=== PATIENT | male | born 1965 | race Two or more races ===

== ENCOUNTER 2016-05-02 14:23 | Inpatient (IN) | payer BC ==
[~2016-05-02] VITALS: Ht 177.8 cm; Wt 95.9 kg
--- NOTE | 2016-05-02 15:13 | RAD ---
PA and lateral chest x-ray compared to similar study dated 02/24/2009 for cough and fever for 2 days. Findings: There is a right perihilar soft tissue density concerning for mass versus enlarged pulmonary artery. This is new since 2009. This could be better evaluated with CT scan of the chest. Small calcified granuloma is present in the right upper lung, there is a small band of atelectasis or scarring in the left midlung. Lungs are otherwise clear, with no focal infiltrate, pneumothorax, pleural effusion, or congestive heart failure. Heart size within normal limits. No significant osseous abnormalities are seen. Impression: 1. Right perihilar density suspicious for lung mass versus enlarged pulmonary artery. Further evaluation with CT scan of the chest is recommended.
[2016-05-02] MEDS ORDERED: IV NORMAL SALINE 1000ML BAG 1,000 ML IV ONE ×2 (15:45→18:00)
[2016-05-02 15:49] LABS: OBC FLU VALID
--- NOTE | 2016-05-02 16:05 | ED.ADGEN ---
Past Medical History Past Medical History: Hypertension Past Surgical History: Other Additional Past Surgical Histo: hernia, skin graft, Alcohol Use: Occasionally Drug Use: None Adult General Chief Complaint Chief Complaint: FLU SYMPTOM HPI HPI Patient is a 50 year old man, with no significant past history, who presents to the emergency department with complaint of cough, subjective fevers and chills, nausea, vomiting, diarrhea generalized weakness and malaise over the past several days. Patient states he has had sick contacts among family members. He denies any focal weakness, numbness or tingling, states that he has body aches but no chest pain, denies any blood in his emesis or stool. Has had multiple episodes of vomiting and diarrhea over the past several days. Cough is productive of white sputum. Has not taken any medications prior to coming to the ED. Denies any recent travel or surgery, history of DVT or PE. Review of Systems Review of Systems Constitutional: Denies fever or chills. [] Eyes: Denies change in visual acuity. [] HENT: Nasal congestion and sore throat. Respiratory: Cough productive of white sputum, no shortness of breath. Cardiovascular: Denies chest pain or edema. [] GI: Mild cramping abdominal pain, nausea, vomiting, diarrhea. No bloody stools or bloody emesis. [] : Denies dysuria. [] Musculoskeletal: Denies back pain or joint pain. [] Integument: Denies rash. [] Neurologic: Denies headache, focal weakness or sensory changes. [] Endocrine: Denies polyuria or polydipsia. [] Lymphatic: Denies swollen glands. [] Psychiatric: Denies depression or anxiety. [] Current Medications Current Medications Current Medications Medications (Trade) Dose Ordered Sig/Anu Start Time Stop Time Status Last Admin Dose Admin Acetaminophen (Tylenol) 1,000 mg 1X ONCE 05/02/16 16:30 05/02/16 16:31 DC 05/02/16 16:34 1,000 MG Benzonatate (Tessalon Perle) 100 mg 1X ONCE 05/02/16 16:30 05/02/16 16:31 DC 05/02/16 16:34 100 MG Iohexol (Omnipaque 300 Mg/ml) 75 ml STK-MED ONCE 05/02/16 16:32 05/02/16 16:33 DC Losartan Potassium (Cozaar) 50 mg 1X ONCE 05/02/16 17:45 05/02/16 17:48 DC 05/02/16 17:58 50 MG Metoprolol Succinate 25 mg 25 mg 1X ONCE 05/02/16 17:45 05/02/16 17:48 DC 05/02/16 17:58 25 MG Sodium Chloride (Iv Sodium Chloride 0.9% 1000ml Bag) 1,000 ml @ 1,000 mls/hr 1X ONCE 05/02/16 18:00 05/02/16 18:59 DC 05/02/16 18:09 1,000 MLS/HR Allergies Allergies Allergies Coded Allergies Type Severity Reaction Last Updated Verified No Known Drug Allergies 05/02/16 No Physical Exam Physical Exam Constitutional: Well developed, well nourished, no acute distress, slightly diaphoretic, ill in appearance. [] HENT: Normocephalic, atraumatic, bilateral external ears normal, oropharynx moist, no oral exudates, clear rhinorrhea noted bilaterally mild turbinate swelling, oropharynx mildly injected, no exudates identified. [] Eyes: PERRLA, EOMI, conjunctiva normal, no discharge. [] Neck: Normal range of motion, no tenderness, supple, no stridor. [] Cardiovascular:Heart rate regular rhythm, no murmur, S1, S2, no rubs or gallops. Lungs & Thorax: Bilateral breath sounds clear to auscultation, no wheezing, rhonchi, rales. No chest or crepitus or tenderness. [] Abdomen: Bowel sounds normal, soft, no tenderness, no masses, no pulsatile masses. [] Skin: Warm, dry, no erythema, no rash. [] Back: No tenderness, no CVA tenderness. [] Extremities: No tenderness, no cyanosis, no clubbing, ROM intact, no edema. [] Neurologic: Alert and oriented X 3, normal motor function, normal sensory function, no focal deficits noted. [] Psychologic: Affect normal, judgement normal, mood normal. [] Current Patient Data Vital Signs Vital Signs Date Time Temp Pulse Resp B/P Pulse Ox O2 Delivery O2 Flow Rate FiO2 05/02/16 17:58 79 151/101 05/02/16 17:15 14 97 Room Air 05/02/16 16:35 98.8 98.8 Lab Values Laboratory Tests Test 05/02/16 14:51 05/02/16 16:50 Influenza Type A Antigen Positive (NEGATIVE) Influenza Type B Antigen Negative (NEGATIVE) White Blood Count 8.0x10^3/uL (4.0-11.0) Red Blood Count 6.01x10^6/uL (4.30-5.70) H Hemoglobin 18.5g/dL (13.0-17.5) H Hematocrit 56.1% (39.0-53.0) H Mean Corpuscular Volume 93fL (79-100) Mean Corpuscular Hemoglobin 31pg (25-35) Mean Corpuscular Hemoglobin Concent 33g/dL (31-37) Red Cell Distribution Width 14.3% (11.5-14.5) Platelet Count 122x10^3/uL (140-400) L Neutrophils (%) (Auto) 60% (31-73) Lymphocytes (%) (Auto) 21% (24-48) L Monocytes (%) (Auto) 19% (0-9) H Eosinophils (%) (Auto) 0% (0-3) Basophils (%) (Auto) 0% (0-3) Neutrophils # (Auto) 4.8x10^3uL (1.8-7.7) Lymphocytes # (Auto) 1.6x10^3/uL (1.0-4.8) Monocytes # (Auto) 1.6x10^3/uL (0.0-1.1) H Eosinophils # (Auto) 0.0x10^3/uL (0.0-0.7) Basophils # (Auto) 0.0x10^3/uL (0.0-0.2) Sodium Level 137mmol/L (136-145) Potassium Level 4.4mmol/L (3.5-5.1) Chloride Level 101mmol/L (98-107) Carbon Dioxide Level 23mmol/L (21-32) Anion Gap 13 (6-14) Blood Urea Nitrogen 25mg/dL (8-26) Creatinine 1.5mg/dL (0.7-1.3) H Estimated GFR (Cockcroft-Gault) 49.3 BUN/Creatinine Ratio 17 (6-20) Glucose Level 80mg/dL (70-99) Lactic Acid Level 3.3mmol/L (0.4-2.0) H Calcium Level 8.8mg/dL (8.5-10.1) Total Bilirubin 0.5mg/dL (0.2-1.0) Aspartate Amino Transferase (AST) 43U/L (15-37) H Alanine Aminotransferase (ALT) 31U/L (16-63) Alkaline Phosphatase 82U/L (46-116) Troponin I Quantitative 0.070ng/mL (0.000-0.055) BY-Qnf-U-Type Natriuretic Peptide 1419pg/mL (0-124) H Total Protein 8.3g/dL (6.4-8.2) H Albumin 3.5g/dL (3.4-5.0) Albumin/Globulin Ratio 0.7 (1.0-1.7) L Lipase 172U/L (73-393) Laboratory Tests 05/02/16 16:50 Laboratory Tests 05/02/16 16:50 EKG EKG EC: Sinus rhythm, heart rate 77 bpm, left axis deviation with left anterior fascicular block noted, possible left ventricle hypertrophy with repolarization, elevation noted in aVR, with depressions noted in the inferior and lateral leads, concerning for ischemia. QTC of 434, NJ of 148, QRS of 102, abnormal ECG, does not meet STEMI criteria. Reviewed with Dr. Burgess of cardiology. [] Radiology/Procedures Radiology/Procedures [] [facility] [address] [place] [address] IMAGING REPORT Signed PATIENT: YOSELIN DAWKINS ACCOUNT: [id number] : 1965 LOCATION: ER AGE: 50 SEX: M EXAM STATUS: REG ER ORD. PHYSICIAN: ROSANA AUGUSTIN APRN REASON: cough PROCEDURE: CHEST PA & LATERAL PA and lateral chest x-ray compared to similar study dated 02/24/2009 for cough and fever for 2 days. Findings: There is a right perihilar soft tissue density concerning for mass versus enlarged pulmonary artery. This is new since 2009. This could be better evaluated with CT scan of the chest. Small calcified granuloma is present in the right upper lung, there is a small band of atelectasis or scarring in the left midlung. Lungs are otherwise clear, with no focal infiltrate, pneumothorax, pleural effusion, or congestive heart failure. Heart size within normal limits. No significant osseous abnormalities are seen. Impression: 1. Right perihilar density suspicious for lung mass versus enlarged pulmonary artery. Further evaluation with CT scan of the chest is recommended. DICTATED and SIGNED BY: WINTER FRIEND MD DATE: 05/02/16 4185 CC: BLANE RALPH; ROSANA AUGUSTIN SPECIAL EVENTS COORDINATOR; NON,STAFF ~ Course & Med Decision Making Course & Med Decision Making Pertinent Labs and Imaging studies reviewed. (See chart for details) Patient initially seen on the [facility] side by nurse practitioner Rosana Augustin, complaining of flu symptoms. Chest x-ray obtained, concern for possible mass versus prominence of the pulmonary artery on the right chest. I did assume care of the patient at that point, and evaluated the patient. He is agreeable with plan to receiving imaging of his chest lung laboratory studies including influenza swab to further elucidate his symptoms. Receiving IV fluids, acetaminophen, Tessalon Perle in the ED. Patient's swab was positive for influenza type A. Patient noted to be hypertensive, 160s over low 100s diastolic , heart rate in the 70s, patient denies any chest pain aside from coughing. Patient had not taken his home medications today, we did contact the [facility] pharmacy, patient takes low sore and 50 mg once daily, and metoprolol extended release 25 mg once daily, both medications were given to the patient in the emergency department. ECG was obtained that revealed evidence of ST depressions , with elevation in aVR, morphology concerning for ischemia. Patient with a troponin that was slightly positive at 0.070, patient noted to have significant dehydration, with a lactic of 3.3, creatinine of 1.5. Received IV fluids, multiple attempts for IV access and blood draws did delay in obtaining labs. Findings as above were discussed with Dr. Burgess of cardiology, at this time we are tending to obtain records from with the patient has previously been seen, and had an echo performed in February of this year, we will administer a dose of Lovenox in the emergency department, will follow serial enzymes and repeat EKG. Findings as above discussed with patient, he is agreeable with plan for admission, cardiac evaluation, treatment as above, continued hydration. Tamiflu administered. Findings as above discussed with Dr. Natarajan of internal medicine, patient accepted his service as a full admission to the cardiac telemetry floor with cardiac consultation as stated, no indication for antibiotics at this time, will continue to treat with supportive measures, and follow labs as above. Bridge orders entered per discussion. Dragon Disclaimer Dragon Disclaimer This electronic medical record was generated, in whole or in part, using a voice recognition dictation system. Departure Impression: Primary Impression: Influenza A Additional Impressions: Elevated troponin Abnormal ECG Dehydration Disposition: ADMITTED INPATIENT Admitting Physician: Kerrie Natarajan Condition: IMPROVED Problem Qualifiers ABIGAIL DIEGO DO May 02, 2016 16:05
--- NOTE | 2016-05-02 16:09 | PHYS DOC ---
Past Medical History Past Medical History: Hypertension Past Surgical History: Other Additional Past Surgical Histo: hernia, skin graft, Alcohol Use: Occasionally Drug Use: None Adult General Chief Complaint Chief Complaint: FLU SYMPTOM HPI HPI Patient is a 50 year old male who presents with a productive cough, body aches , chills, subjective fever, generalize weakness and diarrhea that began 2 days ago. Patient states he has history of smoking. He states he stopped a couple years ago. Patient denies any chest pain or shortness of breath. Patient denies any vomiting or melena. Denies any abdominal pain. History of hypertension and smoking. Review of Systems Review of Systems Constitutional: Generalized weakness, body aches fever Eyes: Denies change in visual acuity, redness, or eye pain [] HENT: Denies nasal congestion or sore throat [] Respiratory: cough Cardiovascular: No additional information not addressed in HPI [] GI: Denies abdominal pain, nausea, vomiting, bloody stools or diarrhea [] : Denies dysuria or hematuria [] Musculoskeletal: Denies back pain or joint pain [] Integument: Denies rash or skin lesions [] Neurologic: Denies headache, focal weakness or sensory changes [] Endocrine: Denies polyuria or polydipsia [] Current Medications Current Medications Current Medications Medications (Trade) Dose Ordered Sig/Anu Start Time Stop Time Status Last Admin Dose Admin Acetaminophen (Tylenol) 1,000 mg 1X ONCE 05/02/16 16:30 05/02/16 16:31 DC 05/02/16 16:34 1,000 MG Benzonatate (Tessalon Perle) 100 mg 1X ONCE 05/02/16 16:30 05/02/16 16:31 DC 05/02/16 16:34 100 MG Iohexol (Omnipaque 300 Mg/ml) 75 ml STK-MED ONCE 05/02/16 16:32 05/02/16 16:33 DC Sodium Chloride (Iv Sodium Chloride 0.9% 1000ml Bag) 1,000 ml @ 1,000 mls/hr 1X ONCE 05/02/16 15:45 05/02/16 16:44 DC 05/02/16 16:15 1,000 MLS/HR Allergies Allergies Allergies Coded Allergies Type Severity Reaction Last Updated Verified No Known Drug Allergies 05/02/16 No Physical Exam Physical Exam Constitutional: Well developed, well nourished, no acute distress, non-toxic appearance. [] HENT: Normocephalic, atraumatic, bilateral external ears normal, oropharynx moist, no oral exudates, nose normal. [] Eyes: PERRLA, EOMI, conjunctiva normal, no discharge. [] Neck: Normal range of motion, no tenderness, supple, no stridor. [] Cardiovascular:Heart rate regular rhythm, no murmur [] Lungs & Thorax: Bilateral breath sounds clear to auscultation [] Abdomen: Rounded abdomen. Bowel sounds normal, soft, no tenderness, no masses, no pulsatile masses. [] Skin: Warm, dry, no erythema, no rash. [] Back: No tenderness, no CVA tenderness. [] Extremities: No tenderness, no cyanosis, no clubbing, ROM intact, no edema. [] Neurologic: Alert and oriented X 3, normal motor function, normal sensory function, no focal deficits noted. [] Psychologic: Affect normal, judgement normal, mood normal. [] Current Patient Data Vital Signs Vital Signs Date Time Temp Pulse Resp B/P Pulse Ox O2 Delivery O2 Flow Rate FiO2 05/02/16 16:35 98.8 66 18 146/103 99 Room Air 98.8 Lab Values Laboratory Tests Test 05/02/16 14:51 05/02/16 16:50 Influenza Type A Antigen Positive (NEGATIVE) Influenza Type B Antigen Negative (NEGATIVE) White Blood Count 8.0x10^3/uL (4.0-11.0) Red Blood Count 6.01x10^6/uL (4.30-5.70) H Hemoglobin 18.5g/dL (13.0-17.5) H Hematocrit 56.1% (39.0-53.0) H Mean Corpuscular Volume 93fL (79-100) Mean Corpuscular Hemoglobin 31pg (25-35) Mean Corpuscular Hemoglobin Concent 33g/dL (31-37) Red Cell Distribution Width 14.3% (11.5-14.5) Platelet Count 122x10^3/uL (140-400) L Neutrophils (%) (Auto) 60% (31-73) Lymphocytes (%) (Auto) 21% (24-48) L Monocytes (%) (Auto) 19% (0-9) H Eosinophils (%) (Auto) 0% (0-3) Basophils (%) (Auto) 0% (0-3) Neutrophils # (Auto) 4.8x10^3uL (1.8-7.7) Lymphocytes # (Auto) 1.6x10^3/uL (1.0-4.8) Monocytes # (Auto) 1.6x10^3/uL (0.0-1.1) H Eosinophils # (Auto) 0.0x10^3/uL (0.0-0.7) Basophils # (Auto) 0.0x10^3/uL (0.0-0.2) Laboratory Tests 05/02/16 16:50 EKG EKG [] Radiology/Procedures Radiology/Procedures []PROCEDURE: CHEST PA & LATERAL PA and lateral chest x-ray compared to similar study dated 02/24/2009 for cough and fever for 2 days. Findings: There is a right perihilar soft tissue density concerning for mass versus enlarged pulmonary artery. This is new since 2009. This could be better evaluated with CT scan of the chest. Small calcified granuloma is present in the right upper lung, there is a small band of atelectasis or scarring in the left midlung. Lungs are otherwise clear, with no focal infiltrate, pneumothorax, pleural effusion, or congestive heart failure. Heart size within normal limits. No significant osseous abnormalities are seen. Impression: 1. Right perihilar density suspicious for lung mass versus enlarged pulmonary artery. Further evaluation with CT scan of the chest is recommended. DICTATED and SIGNED BY: WINTER FRIEND MD DATE: 05/02/16 3021 CC: BLANE RALPH; ROSANA AUGUSTIN SURGICAL AIDES TEACHER; JOSS,STAFF ~ Course & Med Decision Making Course & Med Decision Making Pertinent Labs and Imaging studies reviewed. (See chart for details) Patient is in the ED with symptoms of influenza including body aches chills cough and diarrhea. Chest x-ray interpreted by radiologist was noted for right perihilar density suspicious for lung mass versus enlarged pulmonary artery. Further evaluation and CT scan was recommended. Consulted with Dr. Diego who took over patient's care. I did assume care of this patient as described, at that point this note was not available for additional dictation, therefore I did begin my own note. Please refer to my provider note for further care, disposition and billing purposes. Dragon Disclaimer Dragon Disclaimer This electronic medical record was generated, in whole or in part, using a voice recognition dictation system. Departure Departure Impression: Primary Impression: Influenza A Referrals: BLANE RALPH (PCP) ROSANA AUGUSTIN APRN May 02, 2016 16:09 ABIGAIL DIEGO DO May 02, 2016 17:17
[2016-05-02] MEDS ORDERED: ACETAMINOPHEN 500 MG TABLET PO ONE (16:30)
[2016-05-02] MEDS ORDERED: BENZONATATE 100 MG CAPSULE. PO ONE (16:30)
[2016-05-02] MEDS ORDERED: IOHEXOL 300 MG/ML 75 ML VIAL IV ONE (16:30)
[2016-05-02] MEDS ORDERED: IOHEXOL 300 MG/ML 75 ML VIAL ONE (16:32)
[2016-05-02 17:02] LABS: BASO % 0 % (0-3); EOS % 0 % (0-3); HEMATOCRIT 56.1 % (39.0-53.0); HEMOGLOBIN 18.5 g/dL (13.0-17.5); LYMPH # 1.6 x10^3/uL (1.0-4.8); LYMPH % 21 % (24-48); MEAN CORPUSCULAR HEMOGLOBIN 31 pg (25-35); MEAN CORPUSCULAR HGB CONC 33 g/dL (31-37); MEAN CORPUSCULAR VOLUME 93 fL (79-100); MONO % 19 % (0-9); NEUT % 60 % (31-73); PLATELET COUNT 122 x10^3/uL (140-400); RED BLOOD COUNT 6.01 x10^6/uL (4.30-5.70); RED CELL DISTRIBUTION WIDTH 14.3 % (11.5-14.5)
[2016-05-02 17:16] LABS: CALCIUM 8.8 mg/dL (8.5-10.1); CREATININE 1.5 mg/dL (0.7-1.3); GFR 49.3; POTASSIUM 4.4 mmol/L (3.5-5.1)
[2016-05-02 17:30] LABS: ALBUMIN 3.5 g/dL (3.4-5.0); ALBUMIN/GLOBULIN RATIO 0.7 (1.0-1.7); TOTAL BILIRUBIN 0.5 mg/dL (0.2-1.0); TOTAL PROTEIN 8.3 g/dL (6.4-8.2)
--- NOTE | 2016-05-02 17:40 | RAD ---
PROCEDURE CT chest with contrast HISTORY Cough, abnormal chest radiograph. Weakness. TECHNIQUE Axial images and coronal and sagittal re-formatted images are provided. 75 milliliters of intravenous Omnipaque 300 was administered without complication. One or more of the following individualized dose reduction techniques were utilized for this exam: 1. Automated exposure control. 2. Adjustment of the mA and/or kV according to patient's size. 3. Use of iterative reconstruction technique. COMPARISON Chest radiograph from earlier today. FINDINGS There is dilated pulmonary outflow tract with main pulmonary artery measuring 4.5 centimeters in diameter and right main pulmonary artery 3.6 centimeters in diameter. Thoracic aorta is normal caliber. Heart is not enlarged. Minimal pericardial effusion is noted. There is no hilar or mediastinal adenopathy. Mildly prominent precarinal lymph node measures 10 millimeter short axis. Central airways are patent. There is no pleural effusion. There is no parenchymal mass. There is mild fatty infiltration of the liver. There are degenerative changes in the spine. IMPRESSION - Enlarged pulmonary outflow tract may be secondary to pulmonary arterial hypertension. This corresponds to the area of concern on chest radiograph. - Minimal ground-glass opacity in the right lower lobe may be infectious or inflammatory, 3 month follow up would be suggested. Electronically signed by: Chad Gordon MD (May 02, 2016 17:38:54)
[2016-05-02] MEDS ORDERED: METOPROLOL SUCC 24HR ER 25 MG TAB.ER.24H. PO ONE (17:45)
[2016-05-02] MEDS ORDERED: LOSARTAN POTASSIUM 50 MG TABLET. PO ONE (17:45)
[2016-05-02] MEDS ORDERED: ANTI-COAG MONITOR BY PHARMACY. MC PRN (18:45)
[2016-05-02] MEDS ORDERED: OSELTAMIVIR 75 MG CAPSULE PO ONE (19:00)
[2016-05-02] MEDS ORDERED: LABETALOL 20 MG/4 ML DISP.SYRIN. IVP PRN (19:15)
[2016-05-02] MEDS: ENOXAPARIN ** NOTE DOSE ** SYRINGE SQ SCH (19:25)
[2016-05-02] MEDS ORDERED: ONDANSETRON PF 4 MG/2 ML VIAL. IV PRN (19:45)
[2016-05-02] MEDS ORDERED: NITROGLYCERIN SUBLINGUAL 0.4 MG BOTTLE OF 25. SL PRN (19:45)
[2016-05-02] MEDS ORDERED: ACETAMINOPHEN 325 MG TABLET. PO PRN (19:45)
[2016-05-02 20:03] VITALS: BP 146/98
[2016-05-02] MEDS ORDERED: METO25TA9 PO (20:59)
[2016-05-02] MEDS ORDERED: ASPI-482 PO (20:59)
[2016-05-02] MEDS ORDERED: LOSA50TA6 PO (20:59)
[2016-05-02] MEDS: IV NORMAL SALINE 1000ML BAG 1,000 ML IV SCH (21:17)
--- NOTE | 2016-05-02 22:06 | PDOC1 ---
History and Physical Date of Admission Date of Admission DATE: 05/02/16 TIME: 22:05 Identification/Chief Complaint Chief Complaint cough, chest pain Source Source: Chart review, Patient History of Present Illness History of Present Illness Mr. Goldberg, is a 50 year old man, admit from emergency department with complaint of cough, subjective fevers and chills, nausea, vomiting, diarrhea and generalized weakness and malaise. INFLUENZA postive, tamiflu started he elicited + chest pain in ER ROS, he tells me pain is only with coughing and consistent over the past several days. he was asleep when I entered and has no current pain cough is productive of white sputum, Past Medical History Cardiovascular: HTN Pulmonary: Other (1 PULM HTN) Heme/Onc: No pertinent hx Hepatobiliary: No pertinent hx Psych: No pertinent hx Past Surgical History Past Surgical History: No pertinent history Social History Smoke: <1 pack per day ALCOHOL: rare Drugs: None Current Problem List Problem List Problems Medical Problems: (1) Abnormal ECG Status: Acute (2) Dehydration Status: Acute (3) Elevated troponin Status: Acute (4) Influenza A Status: Acute Problems: Current Medications Current Medications Current Medications Sodium Chloride (Iv Sodium Chloride 0.9% 1000ml Bag) 1,000 ml @ 1,000 mls/hr 1X ONCE IV Last administered on 05/02/16 16:15; Start 05/02/16 at 15:45; Stop 05/02/16 at 16:44; Status DC Acetaminophen (Tylenol) 1,000 mg 1X ONCE PO Last administered on 05/02/16 16: 34; Start 05/02/16 at 16:30; Stop 05/02/16 at 16:31; Status DC Benzonatate (Tessalon Perle) 100 mg 1X ONCE PO Last administered on 05/02/16 16:34; Start 05/02/16 at 16:30; Stop 05/02/16 at 16:31; Status DC Iohexol (Omnipaque 300 Mg/ml) 75 ml 1X ONCE IV Last administered on 05/02/16 17:07; Start 05/02/16 at 16:30; Stop 05/02/16 at 16:32; Status DC Iohexol (Omnipaque 300 Mg/ml) 75 ml STK-MED ONCE .ROUTE ; Start 05/02/16 at 16: 32; Stop 05/02/16 at 16:33; Status DC Losartan Potassium (Cozaar) 50 mg 1X ONCE PO Last administered on 05/02/16 17 :58; Start 05/02/16 at 17:45; Stop 05/02/16 at 17:48; Status DC Metoprolol Succinate 25 mg 25 mg 1X ONCE PO Last administered on 05/02/16 17: 58; Start 05/02/16 at 17:45; Stop 05/02/16 at 17:48; Status DC Sodium Chloride (Iv Sodium Chloride 0.9% 1000ml Bag) 1,000 ml @ 1,000 mls/hr 1X ONCE IV Last administered on 05/02/16 18:09; Start 05/02/16 at 18:00; Stop 05/02/16 at 18:59; Status DC Enoxaparin Sodium (Lovenox Per Pharmacy Treatment Dosing) 1 each PRN DAILY PRN MC SEE COMMENTS; Start 05/02/16 at 18:30 Enoxaparin Sodium (Lovenox 100mg Syringe) 100 mg Q12HR SQ Last administered on 05/02/16 19:25; Start 05/02/16 at 19:00 Info (Anti-Coagulation Monitoring By Pharmacy) 1 each PRN DAILY PRN MC SEE COMMENTS; Start 05/02/16 at 18:45 Oseltamivir Phosphate (Tamiflu) 75 mg BID PO ; Start 05/03/16 at 09:00; Stop at 08:59 Oseltamivir Phosphate (Tamiflu) 75 mg 1X ONCE PO Last administered on 19:24; Start 05/02/16 at 19:00; Stop 05/02/16 at 19:01; Status DC Labetalol HCl (Normodyne) 10 mg PRN Q6HRS PRN IVP HYPERTENSION, SEE COMMENTS; Start 05/02/16 at 19:15 Ondansetron HCl 4 mg 4 mg PRN Q8HRS PRN IV NAUSEA/VOMITING; Start 05/02/16 at 19:45; Stop 05/03/16 at 19:44 Sodium Chloride (Iv Sodium Chloride 0.9% 1000ml Bag) 1,000 ml @ 125 mls/hr Q8H IV Last administered on 05/02/16 21:17; Start 05/02/16 at 19:33; Stop at 19:32 Acetaminophen (Tylenol) 650 mg PRN Q4HRS PRN PO FEVER; Start 05/02/16 at 19:45 ; Stop 05/03/16 at 19:44 Nitroglycerin (Nitrostat) 0.4 mg PRN Q5MIN PRN SL CHEST PAIN; Start 05/02/16 at 19:45; Stop 05/03/16 at 19:44 Active Scripts Active Reported Aspir 81 (Aspirin) 81 Mg Tablet.dr 81 Tab PO DAILY Metoprolol Succinate ( Xl ) (Metoprolol Succinate) 25 Mg Tab.er.24h 1 Tab PO DAILY Losartan Potassium 50 Mg Tablet 50 Mg PO DAILY Allergies Allergies: Coded Allergies: No Known Drug Allergies (Unverified , 05/02/16) ROS General: YES: Fatigue, Malaise, No: Appetite, Chills, Night Sweats, Other PSYCHOLOGICAL ROS: No: Anxiety, Behavioral Disorder, Concentration difficultie , Decreased libido, Depression, Disorientation, Hallucinations, Hostility, Irritablity, Memory difficulties, Mood Swings, Obsessive thoughts, Other, Physical abuse, Sexual abuse, Sleep disturbances, Suicidal ideation Respiratory: YES: Cough, Pleuritic Pain, No: Hemoptysis, Orthopnea, Other, SOB with excertion, Shortness of breath, Sputum Changes, Stridor, Tachypnea, Wheezing Cardiovascular: yes Chest Pain, No Edema, No Lt Headedness, No Orthopnea, No Other, No Palpitations, No Paroxysmal Noc. Dyspnea Gastrointestinal: No Abdominal Pain, No Constipation, No Diarrhea, No Hematochezia, No Melena, No Nausea, No Other, No Vomiting Genitourinary: No , No , No , No , No , No , No , No Discharge, No Dysuria, No Flank Pain, No Frequency, No Hematuria, No Incontinence, No Other, No Pain, No Retention, No Urgency Neurological: No Behavorial Changes, No Bowel/Bladder ControlChng, No Confusion , No Dizziness, No Gait Disturbance, No Headaches, No Impaired Coord/balance, No Memory Loss, No Numbness/Tingling, No Other, No Seizures, No Speech Problems , No Tremors, No Visual Changes, No Weakness Skin: No Acne, No Dry Skin, No Eczema, No Hair Changes, No Lumps, No Mole Changes, No Mottling, No Nail Changes, No Other, No Pruritus, No Rash, No Skin Lesion Changes Physical Exam General: Alert, Oriented X3, Cooperative, No acute distress HEENT: Atraumatic, EOMI, Mucous membr. moist/pink Lungs: Clear to auscultation, Normal air movement Heart: S1S2, no murmurs Abdomen: Normal bowel sounds Male Genitals Exam: normal genitalia Rectal Exam: not examined Extremities: No clubbing, No edema Skin: No rashes Neuro: Normal speech, Normal tone, Sensation intact, Cranial nerves 3-12 NL Psych/Mental Status: Mental status NL, Mood NL Vitals Vitals Vital Signs Date Time Temp Pulse Resp B/P Pulse Ox O2 Delivery O2 Flow Rate FiO2 05/02/16 20:03 98.2 72 20 146/98 94 Room Air 98.2 Labs Labs Laboratory Tests Test 05/02/16 14:51 05/02/16 16:50 Influenza Type A Antigen Positive (NEGATIVE) Influenza Type B Antigen Negative (NEGATIVE) White Blood Count 8.0x10^3/uL (4.0-11.0) Red Blood Count 6.01x10^6/uL (4.30-5.70) Hemoglobin 18.5g/dL (13.0-17.5) Hematocrit 56.1% (39.0-53.0) Mean Corpuscular Volume 93fL (79-100) Mean Corpuscular Hemoglobin 31pg (25-35) Mean Corpuscular Hemoglobin Concent 33g/dL (31-37) Red Cell Distribution Width 14.3% (11.5-14.5) Platelet Count 122x10^3/uL (140-400) Neutrophils (%) (Auto) 60% (31-73) Lymphocytes (%) (Auto) 21% (24-48) Monocytes (%) (Auto) 19% (0-9) Eosinophils (%) (Auto) 0% (0-3) Basophils (%) (Auto) 0% (0-3) Neutrophils # (Auto) 4.8x10^3uL (1.8-7.7) Lymphocytes # (Auto) 1.6x10^3/uL (1.0-4.8) Monocytes # (Auto) 1.6x10^3/uL (0.0-1.1) Eosinophils # (Auto) 0.0x10^3/uL (0.0-0.7) Basophils # (Auto) 0.0x10^3/uL (0.0-0.2) Sodium Level 137mmol/L (136-145) Potassium Level 4.4mmol/L (3.5-5.1) Chloride Level 101mmol/L (98-107) Carbon Dioxide Level 23mmol/L (21-32) Anion Gap 13 (6-14) Blood Urea Nitrogen 25mg/dL (8-26) Creatinine 1.5mg/dL (0.7-1.3) Estimated GFR (Cockcroft-Gault) 49.3 BUN/Creatinine Ratio 17 (6-20) Glucose Level 80mg/dL (70-99) Lactic Acid Level 3.3mmol/L (0.4-2.0) Calcium Level 8.8mg/dL (8.5-10.1) Total Bilirubin 0.5mg/dL (0.2-1.0) Aspartate Amino Transf (AST/SGOT) 43U/L (15-37) Alanine Aminotransferase (ALT/SGPT) 31U/L (16-63) Alkaline Phosphatase 82U/L (46-116) Troponin I Quantitative 0.070ng/mL (0.000-0.055) [id number]-Type Natriuretic Peptide 1419pg/mL (0-124) Total Protein 8.3g/dL (6.4-8.2) Albumin 3.5g/dL (3.4-5.0) Albumin/Globulin Ratio 0.7 (1.0-1.7) Lipase 172U/L (73-393) Laboratory Tests Test 05/02/16 14:51 05/02/16 16:50 Influenza Type A Antigen Positive (NEGATIVE) Influenza Type B Antigen Negative (NEGATIVE) White Blood Count 8.0x10^3/uL (4.0-11.0) Red Blood Count 6.01x10^6/uL (4.30-5.70) Hemoglobin 18.5g/dL (13.0-17.5) Hematocrit 56.1% (39.0-53.0) Mean Corpuscular Volume 93fL (79-100) Mean Corpuscular Hemoglobin 31pg (25-35) Mean Corpuscular Hemoglobin Concent 33g/dL (31-37) Red Cell Distribution Width 14.3% (11.5-14.5) Platelet Count 122x10^3/uL (140-400) Neutrophils (%) (Auto) 60% (31-73) Lymphocytes (%) (Auto) 21% (24-48) Monocytes (%) (Auto) 19% (0-9) Eosinophils (%) (Auto) 0% (0-3) Basophils (%) (Auto) 0% (0-3) Neutrophils # (Auto) 4.8x10^3uL (1.8-7.7) Lymphocytes # (Auto) 1.6x10^3/uL (1.0-4.8) Monocytes # (Auto) 1.6x10^3/uL (0.0-1.1) Eosinophils # (Auto) 0.0x10^3/uL (0.0-0.7) Basophils # (Auto) 0.0x10^3/uL (0.0-0.2) Sodium Level 137mmol/L (136-145) Potassium Level 4.4mmol/L (3.5-5.1) Chloride Level 101mmol/L (98-107) Carbon Dioxide Level 23mmol/L (21-32) Anion Gap 13 (6-14) Blood Urea Nitrogen 25mg/dL (8-26) Creatinine 1.5mg/dL (0.7-1.3) Estimated GFR (Cockcroft-Gault) 49.3 BUN/Creatinine Ratio 17 (6-20) Glucose Level 80mg/dL (70-99) Lactic Acid Level 3.3mmol/L (0.4-2.0) Calcium Level 8.8mg/dL (8.5-10.1) Total Bilirubin 0.5mg/dL (0.2-1.0) Aspartate Amino Transf (AST/SGOT) 43U/L (15-37) Alanine Aminotransferase (ALT/SGPT) 31U/L (16-63) Alkaline Phosphatase 82U/L (46-116) Troponin I Quantitative 0.070ng/mL (0.000-0.055) [id number]-Zga-[id number]-Type Natriuretic Peptide 1419pg/mL (0-124) Total Protein 8.3g/dL (6.4-8.2) Albumin 3.5g/dL (3.4-5.0) Albumin/Globulin Ratio 0.7 (1.0-1.7) Lipase 172U/L (73-393) VTE Prophylaxis Ordered VTE Prophylaxis Devices: No VTE Pharmacological Prophylaxi: Yes Assessment/Plan Assessment/Plan chest pain, pleuritic on admit, now improved influenza A htn, obese, BMi 30 he reports having Primary pulm Htn and takes a med I had not heard of. He reports seeing Dr. Orlando at [facility], which fits. However, his pharmacy only reports 2 htn meds and 81 asa plz verify in AM troponinemia, CV consult, R.o ACS CKD 2-3, or vasomotor, with elevated hgb, may be dry, IV fluid, recheck, thrombocytopenia may be from flu admit, ID consult RAPHAEL MACIAS MD May 02, 2016 22:06
[2016-05-02] MEDS ORDERED: GUAIFENESIN DM 200MG/20MG 10 ML SYRUP. PO PRN (23:00)
[2016-05-02 23:08] VITALS: BP 173/118
[2016-05-03 01:02] VITALS: BP 134/95
[2016-05-03 03:00] VITALS: BP 156/108
[2016-05-03] MEDS: IV NORMAL SALINE 1000ML BAG 1,000 ML IV SCH ×2 (05:17→11:33)
--- NOTE | 2016-05-03 06:18 | EKG ---
[facility] [address] [place] [address] Test Date: 2016-05-02 Test Time: 17:49:05 Pat Name: YOSELIN DAWKINS Department: Room: Gender: M Tomato Pulper Operator: : 1965 Requested By: ABIGAIL DIEGO Order Number: [id number] Reading MD: Measurements Intervals [place] Rate: 77 P: 39 MT: 148 QRS: -70 QRSD: 102 T: 26 QT: 382 QTc: 434 Interpretive Statements SINUS RHYTHM LEFT ATRIAL ABNORMALITY ABNORMAL LEFT AXIS DEVIATION LEFT ANTERIOR FASCICULAR BLOCK LVH WITH REPOLARIZATION ABNORMALITY ABNORMAL ECG RI6.01 No previous ECG available for comparison
[2016-05-03 06:57] LABS: BASO # 0.1 x10^3/uL (0.0-0.2); BASO % 1 % (0-3); EOS % 0 % (0-3); HEMOGLOBIN 16.9 g/dL (13.0-17.5); LYMPH # 1.5 x10^3/uL (1.0-4.8); LYMPH % 19 % (24-48); MEAN CORPUSCULAR HEMOGLOBIN 31 pg (25-35); MEAN CORPUSCULAR HGB CONC 33 g/dL (31-37); MEAN CORPUSCULAR VOLUME 93 fL (79-100); MONO % 13 % (0-9); NEUT % 67 % (31-73); PLATELET COUNT 123 x10^3/uL (140-400); RED BLOOD COUNT 5.51 x10^6/uL (4.30-5.70); RED CELL DISTRIBUTION WIDTH 14.2 % (11.5-14.5); WHITE BLOOD COUNT 7.6 x10^3/uL (4.0-11.0)
[2016-05-03 07:00] VITALS: BP 154/108
[2016-05-03 07:09] LABS: CALCIUM 7.9 mg/dL (8.5-10.1); CREATININE 1.2 mg/dL (0.7-1.3); GFR 63.8; POTASSIUM 4.3 mmol/L (3.5-5.1)
[2016-05-03 07:22] LABS: ALBUMIN 2.9 g/dL (3.4-5.0); DIRECT BILIRUBIN 0.1 mg/dL (0.0-0.2); TOTAL BILIRUBIN 0.4 mg/dL (0.2-1.0); TOTAL PROTEIN 6.5 g/dL (6.4-8.2)
--- NOTE | 2016-05-03 07:24 | ACF ---
Admission Forms Criteria CHEST PAIN Clinical Indications for Admission to Inpatient Care (Place 'X' for any and all applicable criteria): Admission is indicated for chest pain and ANY ONE of the following(1)(2)(3)(4)(5 ): [ ]I. Angina with acute coronary syndrome (Also use Myocardial Infarction or Angina guideline) [ ]II. Hemodynamic instability [ ]III. Angina needing acute intervention as indicated by ALL of the following( 11)(12): [ ]a) Unstable angina is present as indicated by angina that is ANY ONE of the following: [ ]i) New onset [ ]ii) Nocturnal [ ]iii) Prolonged at rest [ ]iv) Progressive [ ]b) Angina warrants acute intervention as indicated by ANY ONE of the following: [ ]i) Recurrent angina (e.g, not responding as previously to treatment) [ ]ii) Angina at rest or with low-level activities despite initial medical therapy [ ]iii) New or presumably new ST-segment depression on ECG [ ]iv) Signs or symptoms of heart failure (eg, dyspnea, pulmonary edema) [ ]v) New or worsening mitral regurgitation [ ]vi) Hemodynamic instability [ ]vii) Dangerous arrhythmia (eg, sustained ventricular tachycardia) [ ]viii) History of percutaneous coronary intervention within 6 months [ ]ix) History of coronary artery bypass graft surgery [ ]x) ODILON risk score of 2 or greater[A] [ ]xi) History of Diabetes(14) [ ]xii) High-risk cardiac ischemia findings on noninvasive testing (e.g, echocardiogram, treadmill testing, nuclear scan) [ ]xiii) Chronic renal insufficiency (ie, estimated GFR less than 60 mL/min/1.732m) [ ]xiv) Left ventricular ejection fraction less than 40% [X]IV. Evidence of TX (eg, cardiac biomarkers positive, ST-segment elevation on ECG) also use Myocardial Infarction Criteria Form. [ ]V. Pulmonary edema [ ]. Respiratory distress [ ]VII. Chest pain indicative of serious diagnosis other than coronary artery disease (eg, aortic dissection) [ ]VIII. Contraindications and/or Inappropriate clinical situations for Observational Care in patients with Chest Pain, when ANY ONE of the following is required: [ ]a) Patient with risk factor for pulmonary embolism, acute coronary syndrome and myocardial infarction (18) [ ]b) Patient with Pulmonary embolism require an average LOS of 4.3 days, therefore emergency department observation management is inappropriate 18,23 [ ]c) Painful condition/s in the elderly, have the highest rate of recidivism after emergency department observation management (10.8%) 20,21,22 [ ]d) Elevated cardiac biomarker requires intensive and exhaustive care (19) [ ]IX. General contraindications and/or Inappropriate clinical situations for Observational Care in patients with Chest Pain, when ANY ONE of the following is required: [ ]a) Prediction of prolongation of LOS based on ANY ONE of the following may be considered as a contraindication for observational care 2, 3, 4, 5, 6, 7, 8, 9, 10, 11 [ ]i) Age > 65 yrs. [ ]ii) Patient arriving by ambulance [ ]iii) Patient with high acuity [ ]iv) Patient requiring vital sign monitoring [ ]v) Patient on IV medication [ ]b) Systolic blood pressures 180mmHg 3,12 [ ]c) Patient with altered mental status including delirium and other alteration of consciousness, (3) [ ]d) Patient whose discharge disposition will be to a longterm home or rehabilitation home should not be managed in Emergency Department Observation Unit. CMS rule requires 3 days hospital stay before such placement. 3,13 [ ]e) Patient with failure to thrive due to broad array of etiologies 3,16,17 [ ]f) Inability to ambulate 3,14 Extended stay beyond goal length of stay may be needed for (1)(28): [ ]a) Specific condition diagnosed after evaluation (eg, pulmonary embolism, aortic dissection) [ ]b) Unstable angina [ ]c) Continued suspicion of acute coronary syndrome with inability to complete needed cardiac evaluation (eg, patient clinically unable to undergo stress testing) [ ]d) Myocardial infarction (Contents from ANGINA and CHEST PAIN clinical indications for admission to inpatient care have been integrated in this form) The original [facility] content created by [employer] has been revised. The portions of the content which have been revised are identified through the use of italic text or in bold, and [facility] has neither reviewed nor approved the modified material. All other unmodified content is copyright [facility]. Please see references footnoted in the original [facility] edition 2016 Admission Criteria Met?: Yes GELY HO May 03, 2016 07:24
[2016-05-03 07:28] LABS: NEGATIVE OBC STREP NEG; POSITIVE OBC STREP POS
[2016-05-03] MEDS ORDERED: TADA20TA33 PO (08:39)
[2016-05-03] MEDS ORDERED: METOPROLOL SUCC 24HR ER 25 MG TAB.ER.24H. PO SCH (09:00)
[2016-05-03] MEDS ORDERED: VARENICLINE 0.5 MG TABLET. PO SCH (09:00)
[2016-05-03] MEDS ORDERED: OSELTAMIVIR 75 MG CAPSULE PO SCH (09:00)
[2016-05-03] MEDS: ENOXAPARIN ** NOTE DOSE ** SYRINGE SQ SCH (09:00)
[2016-05-03] MEDS ORDERED: LOSARTAN POTASSIUM 50 MG TABLET. PO SCH (09:00)
[2016-05-03] MEDS ORDERED: ASPIRIN ENTERIC COATED 81 MG TABLET.DR. PO SCH (09:00)
--- NOTE | 2016-05-03 09:37 | PDOC2 ---
CARDIAC CONSULT DATE OF CONSULT Date of Consult DATE: 05/03/16 TIME: 09:31 REASON FOR CONSULT Reason for Consult: Elevated troponin Abnormal EKG REFERRING PHYSICIAN Referring Physician: Dr. Willis SOURCE Source: Chart review, Patient HISTORY OF PRESENT ILLNESS HISTORY OF PRESENT ILLNESS This is a 50 yo female who presented with complaints of cough, fatigue, body aches, and subjective fevers. Reports symptoms began 2 days ago. Multiple sick contacts. Cough productive of clear sputum. Meera any chest pain, palpitations , dizziness, SOA, orthopnea, or nausea/vomiting. History of pulmonary hypertension treated with tadalafil; follows closely with Dr. Orlando at . Reports having echocardiogram conducted last months. Reports normal cardiac catheterization at approximately 2 years ago. PAST MEDICAL HISTORY Cardiovascular: HTN, Pulmonary hypertension Pulmonary: No pertinent hx CENTRAL NERVOUS SYSTEM: Other (no pertinent hx) GI: No pertinent hx Heme/Onc: No pertinent hx Hepatobiliary: No pertinent hx Psych: No pertinent hx Musculoskeletal: Other (no pertinent hx ) Rheumatologic: No pertinent hx Infectious disease: No pertinent hx ENT: No pertinent hx Renal/: No pertinent hx Endocrine: No pertinent hx Dermatology: No pertinent hx PAST SURGICAL HISTORY Past Surgical History: Hernia Repair, Other (right carpal tunnel sx, left rotator cuff sx ) FAMILY HISTORY Family History: Coronary Artery Disease (mother ), Hypertension SOCIAL HISTORY Smoke: Quit (recently ) ALCOHOL: none Drugs: None Lives: with Family CURRENT MEDICATIONS CURRENT MEDICATIONS Current Medications Medications (Trade) Dose Ordered Sig/Anu Route PRN Reason Start Time Stop Time Status Last Admin Dose Admin Sodium Chloride (Iv Sodium Chloride 0.9% 1000ml Bag) 1,000 ml @ 1,000 mls/hr 1X ONCE IV 05/02/16 15:45 05/02/16 16:44 DC 05/02/16 16:15 Acetaminophen (Tylenol) 1,000 mg 1X ONCE PO 05/02/16 16:30 05/02/16 16:31 DC 05/02/16 16:34 Benzonatate (Tessalon Perle) 100 mg 1X ONCE PO 05/02/16 16:30 05/02/16 16:31 DC 05/02/16 16:34 Iohexol (Omnipaque 300 Mg/ml) 75 ml 1X ONCE IV 05/02/16 16:30 05/02/16 16:32 DC 3/21/17 17:07 Losartan Potassium (Cozaar) 50 mg 1X ONCE PO 05/02/16 17:45 05/02/16 17:48 DC 05/02/16 17:58 Metoprolol Succinate 25 mg 25 mg 1X ONCE PO 05/02/16 17:45 05/02/16 17:48 DC 05/02/16 17:58 Sodium Chloride (Iv Sodium Chloride 0.9% 1000ml Bag) 1,000 ml @ 1,000 mls/hr 1X ONCE IV 05/02/16 18:00 05/02/16 18:59 DC 05/02/16 18:09 Enoxaparin Sodium (Lovenox 100mg Syringe) 100 mg Q12HR SQ 05/02/16 19:00 05/02/16 19:25 Info (Anti-Coagulation Monitoring By Pharmacy) 1 each PRN DAILY PRN MC SEE COMMENTS 05/02/16 18:45 05/03/16 08:11 Oseltamivir Phosphate (Tamiflu) 75 mg 1X ONCE PO 05/02/16 19:00 05/02/16 19:01 DC 05/02/16 19:24 Labetalol HCl 10 mg 10 mg PRN Q6HRS PRN IVP HYPERTENSION, SEE COMMENTS 05/02/16 19:15 05/02/16 23:19 Sodium Chloride (Iv Sodium Chloride 0.9% 1000ml Bag) 1,000 ml @ 125 mls/hr Q8H IV 05/02/16 19:33 05/03/16 19:32 05/03/16 05:17 Acetaminophen (Tylenol) 650 mg PRN Q4HRS PRN PO FEVER 05/02/16 19:45 05/03/16 19:44 05/03/16 05:21 ALLERGIES ALLERGIES: Coded Allergies: No Known Drug Allergies (Unverified , 05/02/16) ROS Review of System 14 point ROS conducted with pertinent positives noted above in HPI. PHYSICAL EXAM General: Alert, Oriented X3, Cooperative, No acute distress HEENT: Atraumatic, Mucous membr. moist/pink Lungs: Clear to auscultation, Normal air movement Heart: Regular rate, Normal S1, Normal S2 Abdomen: Soft, No tenderness Extremities: No cyanosis, No edema, Normal pulses Skin: No breakdown, No significant lesion Neuro: Normal speech, Sensation intact Psych/Mental Status: Mental status NL, Mood NL MUSCULOSKELETAL: Full range of motion without pain VITALS VITALS Vital Signs Date Time Temp Pulse Resp B/P Pulse Ox O2 Delivery O2 Flow Rate FiO2 05/03/16 07:00 98.4 79 20 154/108 94 Room Air 98.4 LABS Lab: Laboratory Tests Test 05/02/16 14:51 05/02/16 15:10 05/02/16 16:50 05/02/16 21:48 Influenza Type A Antigen Positive (NEGATIVE) Influenza Type B Antigen Negative (NEGATIVE) Group A Streptococcus Rapid Negative (NEGATIVE) White Blood Count 8.0x10^3/uL (4.0-11.0) Red Blood Count 6.01x10^6/uL (4.30-5.70) Hemoglobin 18.5g/dL (13.0-17.5) Hematocrit 56.1% (39.0-53.0) Mean Corpuscular Volume 93fL (79-100) Mean Corpuscular Hemoglobin 31pg (25-35) Mean Corpuscular Hemoglobin Concent 33g/dL (31-37) Red Cell Distribution Width 14.3% (11.5-14.5) Platelet Count 122x10^3/uL (140-400) Neutrophils (%) (Auto) 60% (31-73) Lymphocytes (%) (Auto) 21% (24-48) Monocytes (%) (Auto) 19% (0-9) Eosinophils (%) (Auto) 0% (0-3) Basophils (%) (Auto) 0% (0-3) Neutrophils # (Auto) 4.8x10^3uL (1.8-7.7) Lymphocytes # (Auto) 1.6x10^3/uL (1.0-4.8) Monocytes # (Auto) 1.6x10^3/uL (0.0-1.1) Eosinophils # (Auto) 0.0x10^3/uL (0.0-0.7) Basophils # (Auto) 0.0x10^3/uL (0.0-0.2) Sodium Level 137mmol/L (136-145) Potassium Level 4.4mmol/L (3.5-5.1) Chloride Level 101mmol/L (98-107) Carbon Dioxide Level 23mmol/L (21-32) Anion Gap 13 (6-14) Blood Urea Nitrogen 25mg/dL (8-26) Creatinine 1.5mg/dL (0.7-1.3) Estimated GFR (Cockcroft-Gault) 49.3 BUN/Creatinine Ratio 17 (6-20) Glucose Level 80mg/dL (70-99) Lactic Acid Level 3.3mmol/L (0.4-2.0) 1.1mmol/L (0.4-2.0) Calcium Level 8.8mg/dL (8.5-10.1) Total Bilirubin 0.5mg/dL (0.2-1.0) Aspartate Amino Transf (AST/SGOT) 43U/L (15-37) Alanine Aminotransferase (ALT/SGPT) 31U/L (16-63) Alkaline Phosphatase 82U/L (46-116) Troponin I Quantitative 0.070ng/mL (0.000-0.055) OA-Gpq-R-Type Natriuretic Peptide 1419pg/mL (0-124) Total Protein 8.3g/dL (6.4-8.2) Albumin 3.5g/dL (3.4-5.0) Albumin/Globulin Ratio 0.7 (1.0-1.7) Lipase 172U/L (73-393) Test 05/03/16 01:00 05/03/16 06:43 Troponin I Quantitative 0.088ng/mL (0.000-0.055) 0.095ng/mL (0.000-0.055) White Blood Count 7.6x10^3/uL (4.0-11.0) Red Blood Count 5.51x10^6/uL (4.30-5.70) Hemoglobin 16.9g/dL (13.0-17.5) Hematocrit 51.0% (39.0-53.0) Mean Corpuscular Volume 93fL (79-100) Mean Corpuscular Hemoglobin 31pg (25-35) Mean Corpuscular Hemoglobin Concent 33g/dL (31-37) Red Cell Distribution Width 14.2% (11.5-14.5) Platelet Count 123x10^3/uL (140-400) Neutrophils (%) (Auto) 67% (31-73) Lymphocytes (%) (Auto) 19% (24-48) Monocytes (%) (Auto) 13% (0-9) Eosinophils (%) (Auto) 0% (0-3) Basophils (%) (Auto) 1% (0-3) Neutrophils # (Auto) 5.1x10^3uL (1.8-7.7) Lymphocytes # (Auto) 1.5x10^3/uL (1.0-4.8) Monocytes # (Auto) 1.0x10^3/uL (0.0-1.1) Eosinophils # (Auto) 0.0x10^3/uL (0.0-0.7) Basophils # (Auto) 0.1x10^3/uL (0.0-0.2) Sodium Level 142mmol/L (136-145) Potassium Level 4.3mmol/L (3.5-5.1) Chloride Level 106mmol/L (98-107) Carbon Dioxide Level 23mmol/L (21-32) Anion Gap 13 (6-14) Blood Urea Nitrogen 21mg/dL (8-26) Creatinine 1.2mg/dL (0.7-1.3) Estimated GFR (Cockcroft-Gault) 63.8 Glucose Level 110mg/dL (70-99) Calcium Level 7.9mg/dL (8.5-10.1) Total Bilirubin 0.4mg/dL (0.2-1.0) Direct Bilirubin 0.1mg/dL (0.0-0.2) Aspartate Amino Transf (AST/SGOT) 34U/L (15-37) Alanine Aminotransferase (ALT/SGPT) 30U/L (16-63) Alkaline Phosphatase 68U/L (46-116) Total Protein 6.5g/dL (6.4-8.2) Albumin 2.9g/dL (3.4-5.0) Triglycerides Level 125mg/dL (0-150) Cholesterol Level 164mg/dL (0-200) LDL Cholesterol, Calculated 106mg/dL (0-100) VLDL Cholesterol, Calculated 25mg/dL (0-40) HDL Cholesterol 33mg/dL (40-60) Cholesterol/HDL Ratio 5.0 ASSESSMENT/PLAN ASSESSMENT/PLAN 1, Mildly elevated troponin 2. Hypertension 3. Pulmonary hypertension 4. Influenza A 5. Dyslipidemia 6. Lactic acidosis Recommendations Mild troponin elevation likely demand ischemia secondary to acute viral infection Obtain cardiac records Resume home antiHTN therapy LDL= 108. Lifestyle/dietary modification Supportive care Further recommendations pending review of records [facility] records obtained: - 03/13/2011 Right and left heart catheterization 1. No evidence of obstructive coronary artery disease 2. Normal LV systolic function with EF of 60% 3. Elevated pulmonary artery pressure with elevated pulmonary vascular resistance non responsive to nitrous oxide inhalation. 4. Normal LVEDP 5. No gradient through the mitral the mitral valve. - 02/09/2014 2-D Echocardiogram Normal systolic function Mild LV diastolic dysfunction Septal motion consistent with RV pressure overload Mildly dilated right atrium pressure and right ventricle with RV free wall hypertrophy Mild pulmonary artery dilatation Normal valvular structures PAP 53mmHg - 02/17/16 2-D Echocardiogram Moderately dilated RV. LVEF 55% Unremarkable cardiac valve structures and function PAP 59mmHg No further cardiac workup warranted Problems: BEATRIZ MEYER APRN May 03, 2016 09:37
[2016-05-03 11:00] VITALS: BP 145/101
--- NOTE | 2016-05-03 12:10 | PDOC ---
PROGRESS NOTES Chief Complaint Chief Complaint Chest wall pain Influenza A ASSESSMENT AND PLAN: 1. Influenza A: on tamiflu 2. Chest wall pain: 2/2 above. treat symptomatically 3. Primary pulmHTN: following with [facility]. pulm consult 4. HTN: much improved. cont home regimen 5. Troponin leak: demand ischemia, prob chronic with pulmHTN. appreciate cardiology input 6. Prophylaxis: decrease lovenox to prophylactic rather than therapeutic dose. 7. Dispo: home when cleared by cards troponinemia, CV consult, R.o ACS CKD 2-3, or vasomotor, with elevated hgb, may be dry, IV fluid, recheck, thrombocytopenia may be from flu Vitals Vitals Vital Signs Date Time Temp Pulse Resp B/P Pulse Ox O2 Delivery O2 Flow Rate FiO2 05/03/16 11:00 98.6 67 18 145/101 95 Room Air 98.6 Physical Exam General: Alert, Oriented X3, Cooperative, No acute distress Heart: Regular rate, Normal S1, Normal S2 Abdomen: Soft, No tenderness Extremities: No cyanosis, No edema, Normal pulses Skin: No breakdown, No significant lesion Labs LABS Laboratory Tests Test 05/02/16 14:51 05/02/16 15:10 05/02/16 16:50 05/02/16 21:48 Influenza Type A Antigen Positive (NEGATIVE) Influenza Type B Antigen Negative (NEGATIVE) Group A Streptococcus Rapid Negative (NEGATIVE) White Blood Count 8.0x10^3/uL (4.0-11.0) Red Blood Count 6.01x10^6/uL (4.30-5.70) Hemoglobin 18.5g/dL (13.0-17.5) Hematocrit 56.1% (39.0-53.0) Mean Corpuscular Volume 93fL (79-100) Mean Corpuscular Hemoglobin 31pg (25-35) Mean Corpuscular Hemoglobin Concent 33g/dL (31-37) Red Cell Distribution Width 14.3% (11.5-14.5) Platelet Count 122x10^3/uL (140-400) Neutrophils (%) (Auto) 60% (31-73) Lymphocytes (%) (Auto) 21% (24-48) Monocytes (%) (Auto) 19% (0-9) Eosinophils (%) (Auto) 0% (0-3) Basophils (%) (Auto) 0% (0-3) Neutrophils # (Auto) 4.8x10^3uL (1.8-7.7) Lymphocytes # (Auto) 1.6x10^3/uL (1.0-4.8) Monocytes # (Auto) 1.6x10^3/uL (0.0-1.1) Eosinophils # (Auto) 0.0x10^3/uL (0.0-0.7) Basophils # (Auto) 0.0x10^3/uL (0.0-0.2) Sodium Level 137mmol/L (136-145) Potassium Level 4.4mmol/L (3.5-5.1) Chloride Level 101mmol/L (98-107) Carbon Dioxide Level 23mmol/L (21-32) Anion Gap 13 (6-14) Blood Urea Nitrogen 25mg/dL (8-26) Creatinine 1.5mg/dL (0.7-1.3) Estimated GFR (Cockcroft-Gault) 49.3 BUN/Creatinine Ratio 17 (6-20) Glucose Level 80mg/dL (70-99) Lactic Acid Level 3.3mmol/L (0.4-2.0) 1.1mmol/L (0.4-2.0) Calcium Level 8.8mg/dL (8.5-10.1) Total Bilirubin 0.5mg/dL (0.2-1.0) Aspartate Amino Transf (AST/SGOT) 43U/L (15-37) Alanine Aminotransferase (ALT/SGPT) 31U/L (16-63) Alkaline Phosphatase 82U/L (46-116) Troponin I Quantitative 0.070ng/mL (0.000-0.055) MV-Ixo-A-Type Natriuretic Peptide 1419pg/mL (0-124) Total Protein 8.3g/dL (6.4-8.2) Albumin 3.5g/dL (3.4-5.0) Albumin/Globulin Ratio 0.7 (1.0-1.7) Lipase 172U/L (73-393) Test 05/03/16 01:00 05/03/16 06:43 Troponin I Quantitative 0.088ng/mL (0.000-0.055) 0.095ng/mL (0.000-0.055) White Blood Count 7.6x10^3/uL (4.0-11.0) Red Blood Count 5.51x10^6/uL (4.30-5.70) Hemoglobin 16.9g/dL (13.0-17.5) Hematocrit 51.0% (39.0-53.0) Mean Corpuscular Volume 93fL (79-100) Mean Corpuscular Hemoglobin 31pg (25-35) Mean Corpuscular Hemoglobin Concent 33g/dL (31-37) Red Cell Distribution Width 14.2% (11.5-14.5) Platelet Count 123x10^3/uL (140-400) Neutrophils (%) (Auto) 67% (31-73) Lymphocytes (%) (Auto) 19% (24-48) Monocytes (%) (Auto) 13% (0-9) Eosinophils (%) (Auto) 0% (0-3) Basophils (%) (Auto) 1% (0-3) Neutrophils # (Auto) 5.1x10^3uL (1.8-7.7) Lymphocytes # (Auto) 1.5x10^3/uL (1.0-4.8) Monocytes # (Auto) 1.0x10^3/uL (0.0-1.1) Eosinophils # (Auto) 0.0x10^3/uL (0.0-0.7) Basophils # (Auto) 0.1x10^3/uL (0.0-0.2) Sodium Level 142mmol/L (136-145) Potassium Level 4.3mmol/L (3.5-5.1) Chloride Level 106mmol/L (98-107) Carbon Dioxide Level 23mmol/L (21-32) Anion Gap 13 (6-14) Blood Urea Nitrogen 21mg/dL (8-26) Creatinine 1.2mg/dL (0.7-1.3) Estimated GFR (Cockcroft-Gault) 63.8 Glucose Level 110mg/dL (70-99) Calcium Level 7.9mg/dL (8.5-10.1) Total Bilirubin 0.4mg/dL (0.2-1.0) Direct Bilirubin 0.1mg/dL (0.0-0.2) Aspartate Amino Transf (AST/SGOT) 34U/L (15-37) Alanine Aminotransferase (ALT/SGPT) 30U/L (16-63) Alkaline Phosphatase 68U/L (46-116) Total Protein 6.5g/dL (6.4-8.2) Albumin 2.9g/dL (3.4-5.0) Triglycerides Level 125mg/dL (0-150) Cholesterol Level 164mg/dL (0-200) LDL Cholesterol, Calculated 106mg/dL (0-100) VLDL Cholesterol, Calculated 25mg/dL (0-40) HDL Cholesterol 33mg/dL (40-60) Cholesterol/HDL Ratio 5.0 Review of Systems Review of Systems cough, and thus chest pain, improved. no N/V, diarrhea persisting TALYA CAIN MD May 03, 2016 12:10
--- NOTE | 2016-05-03 13:05 | DISCH ---
DISCHARGE INSTRUCTIONS Condition on Discharge Condition on Discharge: Stable Activity After Discharge Activity Instructions for Disc: No restrictions Diet after Discharge Diet after Discharge: Cardiac Contacting the DR. after DC Call your doctor for: If your condition worsens Follow-Up Follow up with: PCP in 1 week Follow Up With: Dr Orlando as previously arranged TALYA CAIN MD May 03, 2016 13:05
[2016-05-03] MEDS ORDERED: OSEL75CA PO (13:09)
[2016-05-03] MEDS ORDERED: ACET-704 PO (13:09)
== END 2016-05-03 14:33 | disposition home or self-care (01) | DRG 194 ==
LOC: ER 14:23 → 2 SOUTH 18:23
PROVIDERS: ADMIT Internal Medicine; ATTEND Internal Medicine
DX: J10.1 Influenza due to other identified influenza virus with other respiratory manifestations (principal); E87.2 Acidosis; I24.8 Other forms of acute ischemic heart disease; I27.0 Primary pulmonary hypertension; E66.9 Obesity, unspecified; E78.5 Hyperlipidemia, unspecified; E86.0 Dehydration; I12.9 Hypertensive chronic kidney disease with stage 1 through stage 4 chronic kidney disease, or unspecified chronic kidney disease; N18.3 Chronic kidney disease, stage 3 (moderate); Z68.30 Body mass index [BMI] 30.0-30.9, adult; Z82.49 Family history of ischemic heart disease and other diseases of the circulatory system; Z87.891 Personal history of nicotine dependence
CPT/HCPCS: 36415; 71020; 71260; 80048; 80053; 80061; 80076; 83605; 83690; 83880; 84484; 85027; 87070; 87804; 87880; 93005; 96360; 96361; J1650; J3490; J7030; Q9967; 99285-25

== ENCOUNTER 2020-08-09 02:32 | Emergency (ER) | payer BC ==
[~2020-08-09] VITALS: Ht 177.8 cm; Wt 104.5 kg
[~2020-08-09 02:32] MED LIST: ACET-704 PO; ASPI-482 PO; LOSA-73 PO; METO-239 PO; OSEL75CA PO; TADA20TA33 PO
--- NOTE | 2020-08-09 02:47 | ED.ADGEN ---
Past Medical History Past Medical History: Hypertension Past Surgical History: Other Additional Past Surgical Histo: hernia, skin graft, Smoking Status: Current Every Day Smoker Alcohol Use: Occasionally Drug Use: None General Adult EDM: Chief Complaint: CHEST PAIN HPI: HPI: Patient is a 54 year old male coming in for chest pain on the left side of his chest that does not radiate since this afternoon. Is been there for about 10 hours. Worse with taking a deep breath. Patient has had a cough productive of brown phlegm for the past 2 days. Denies any fevers or GI complaints. Has a history of hypertension and pulmonary hypertension. Smokes 1/2 pack cigarettes daily Review of Systems: Review of Systems: All other systems within normal limits except for as noted in the HPI Current Medications: Current Medications Medications (Trade) Dose Ordered Sig/Anu Start Time Stop Time Status Last Admin Dose Admin Aspirin (Aspirin Chewable) 324 mg 1X ONCE 08/09/20 03:45 08/09/20 03:46 DC 08/09/20 03:44 324 MG Info (CONTRAST GIVEN -- Rx MONITORING) 1 each PRN DAILY PRN 08/09/20 05:30 08/11/20 05:29 Iohexol (Omnipaque 300 Mg/ml) 60 ml 1X ONCE 08/09/20 05:30 08/09/20 05:31 DC Allergies: Allergies: Allergies Coded Allergies Type Severity Reaction Last Updated Verified No Known Drug Allergies 05/02/16 No Physical Exam: PE: Constitutional: Well developed, well nourished, no acute distress, non-toxic appearance. [] HENT: Normocephalic, atraumatic, bilateral external ears normal, nose normal. [] Eyes: PERRLA, conjunctiva normal, no discharge. [] Neck: No rigidity, supple, no stridor. [] Cardiovascular: Regular rate and rhythm, brisk cap refill [] Lungs & Thorax: Non labored symmetric respirations, no tachypnea or respiratory distress [] Abdomen: Soft, nondistended. Skin: Warm, dry, no erythema, no rash. [] Back: Unremarkable Extremities: No deformities, range of motion grossly intact, no lower extremity edema [] Neurologic: Alert and oriented X 3, no focal deficits noted. [] Psychologic: Affect normal, judgement normal, mood normal. [] Current Patient Data: Labs: Laboratory Tests Test 08/09/20 02:40 08/09/20 03:20 White Blood Count 9.4 x10^3/uL (4.0-11.0) Red Blood Count 5.27 x10^6/uL (4.30-5.70) Hemoglobin 17.1 g/dL (13.0-17.5) Hematocrit 49.9 % (39.0-53.0) Mean Corpuscular Volume 95 fL (79-100) Mean Corpuscular Hemoglobin 32 pg (25-35) Mean Corpuscular Hemoglobin Concent 34 g/dL (31-37) Red Cell Distribution Width 14.0 % (11.5-14.5) Platelet Count 154 x10^3/uL (140-400) Neutrophils (%) (Auto) 50 % (31-73) Lymphocytes (%) (Auto) 30 % (24-48) Monocytes (%) (Auto) 17 % (0-9) H Eosinophils (%) (Auto) 2 % (0-3) Basophils (%) (Auto) 1 % (0-3) Neutrophils # (Auto) 4.7 x10^3/uL (1.8-7.7) Lymphocytes # (Auto) 2.8 x10^3/uL (1.0-4.8) Monocytes # (Auto) 1.6 x10^3/uL (0.0-1.1) H Eosinophils # (Auto) 0.2 x10^3/uL (0.0-0.7) Basophils # (Auto) 0.1 x10^3/uL (0.0-0.2) Sodium Level 140 mmol/L (136-145) Potassium Level 4.2 mmol/L (3.5-5.1) Chloride Level 106 mmol/L (98-107) Carbon Dioxide Level 25 mmol/L (21-32) Anion Gap 9 (6-14) Blood Urea Nitrogen 18 mg/dL (8-26) Creatinine 1.3 mg/dL (0.7-1.3) Estimated GFR (Cockcroft-Gault) 57.3 BUN/Creatinine Ratio 14 (6-20) Glucose Level 123 mg/dL (70-99) H Calcium Level 8.3 mg/dL (8.5-10.1) L Total Bilirubin 0.2 mg/dL (0.2-1.0) Aspartate Amino Transferase (AST) 19 U/L (15-37) Alanine Aminotransferase (ALT) 28 U/L (16-63) Alkaline Phosphatase 98 U/L (46-116) Troponin I Quantitative < 0.017 ng/mL (0.000-0.055) OX-Hxu-K-Type Natriuretic Peptide 170 pg/mL (0-124) H Total Protein 6.6 g/dL (6.4-8.2) Albumin 3.4 g/dL (3.4-5.0) Albumin/Globulin Ratio 1.1 (1.0-1.7) Laboratory Tests 08/09/20 02:40 Laboratory Tests 08/09/20 03:20 Vital Signs: Vital Signs Date Time Temp Pulse Resp B/P (MAP) Pulse Ox O2 Delivery O2 Flow Rate FiO2 08/09/20 03:36 68 18 145/83 (103) 91 Room Air 08/09/20 02:41 98.9 98.9 EKG: EKG: Sinus rhythm,mild left axis deviation, incomplete right bundle branch block, heart rate 76 bpm [] no significant change from EKG dated 05-02-16 Heart Score: C/O Chest Pain: Yes HEART Score for Chest Pain: HEART Score for Chest Pain Response (Comments) Value History Slighlty/Non-Suspicious 0 ECG Nonspecific Repolarizatio 1 Age >45 - < 65 1 Risk Factors 1 or 2 Risk Factors 1 Troponin < Normal Limit 0 Total 3 Risk Factors: Risk Factors: DM, Current or recent (<one month) smoker, HTN, HLP, family hi story of CAD, obesity. Risk Scores: Score 0 - 3: 2.5% MACE over next 6 weeks - Discharge Home Score 4 - 6: 20.3% MACE over next 6 weeks - Admit for Clinical Observation Score 7 - 10: 72.7% MACE over next 6 weeks - Early Invasive Strategies Radiology/Procedures: Radiology/Procedures: [facility] [address] [place] [address] IMAGING REPORT Signed PATIENT: YOSELIN DAWKINS DACCOUNT: [id number] : 1965 LOCATION: ER AGE: 54 SEX: M EXAM STATUS: REG ER ORD. PHYSICIAN: ROSALIND AVILEZ MD REASON: right lung mass, omni 300, 60 ml iv PROCEDURE: CT CHEST W/CONTRAST CT THORAX W INDICATION: right lung mass Comparison: Radiograph 08/01/2020. CT 05/02/2016. TECHNIQUE: Following the uneventful administration of intravenous contrast, 60 cc Omnipaque 300, axial CT sections were obtained through the lungs and upper abdomen. Multiplanar reconstructions and MIP images were obtained. RS compliance statement: One or more of the following individualized dose reduction techniques were utilized for this examination: 1. Automated exposure control 2. Adjustment of the mA and/or kV according to patient size 3. Use of iterative reconstruction technique FINDINGS: Lungs and Airways: No pulmonary mass or consolidation. No abnormality of the central airways. Pleura: The pleural spaces are normal. Heart and Mediastinum: The visualized thyroid is normal in size and attenuation. No axillary or supraclavicular lymphadenopathy. No mediastinal, hilar or re trocrural lymphadenopathy. The heart and pericardium are within normal limits. Normal caliber thoracic aorta. Dilated pulmonary trunk measures 4.5 cm. Abdomen: Cholelithiasis. Bones and Soft Tissues: Degenerative changes of the spine. IMPRESSION: 1. No pulmonary mass or consolidation. No thoracic lymphadenopathy. 2. Dilated pulmonary vasculature, which can be seen with pulmonary hypertension. Electronically signed by: Nancy Breen MD (08/09/2020 5:57 AM) [facility] DICTATED and SIGNED BY: NANCY BREEN MD DATE: 08/09/20 [id number] [][facility] [address] [place] [address] IMAGING REPORT Signed PATIENT: YOSELIN DAWKINS DACCOUNT: [id number] : 1965 LOCATION: ER AGE: 54 SEX: M EXAM STATUS: REG ER ORD. PHYSICIAN: ROSALIND AVILEZ MD REASON: chest pain, cough PROCEDURE: CHEST PA & LATERAL XR CHEST 2V INDICATION: chest pain, cough COMPARISON STUDY: 05/02/2016. FINDINGS: Lungs: Normal lung volume. No pulmonary mass or consolidation. The tracheobronchial tree and hilar structures are normal. Pleura: No pleural effusion or pneumothorax. Heart and Mediastinum: Normal cardiac size. Enlarged pulmonary arteries. IMPRESSION: 1. No focal airspace disease. 2. Enlarged pulmonary arteries, which can be seen with pulmonary hypertension. Electronically signed by: Nancy Breen MD (08/09/2020 5:54 AM) [facility] DICTATED and SIGNED BY: NANCY BREEN MD DATE: 08/09/20 [id number] 0 Course & Med Decision Making: Course & Med Decision Making Pertinent Labs and Imaging studies reviewed. (See chart for details) [] Dragon Disclaimer: Dragon Disclaimer: This electronic medical record was generated, in whole or in part, using a voice recognition dictation system. Departure Departure Impression: Primary Impression: Pneumonia Disposition: 01 HOME / SELF CARE / HOMELESS Condition: STABLE Referrals: BLANE RALPH (PCP) Patient Instructions: Pneumomediastinum Scripts Prednisone (PREDNISONE) 50 Mg Tablet 1 TAB PO DAILY for steroid for 5 Days, #5 TAB Prov: ROSALIND AVILEZ MD 08/09/20 Amoxicillin/Potassium Clav (AUGMENTIN 875-125 TABLET) 1 Each Tablet 1 TAB PO Q12HR for antibioitic for 5 Days, #10 TAB Prov: ROSALIND AVILEZ MD 08/09/20 ROSALIND AVILEZ MD Aug 09, 2020 02:47
[2020-08-09 03:01] LABS: BASO # 0.1 x10^3/uL (0.0-0.2); BASO % 1 % (0-3); EOS # 0.2 x10^3/uL (0.0-0.7); EOS % 2 % (0-3); HEMATOCRIT 49.9 % (39.0-53.0); HEMOGLOBIN 17.1 g/dL (13.0-17.5); LYMPH # 2.8 x10^3/uL (1.0-4.8); LYMPH % 30 % (24-48); MEAN CORPUSCULAR HEMOGLOBIN 32 pg (25-35); MEAN CORPUSCULAR HGB CONC 34 g/dL (31-37); MEAN CORPUSCULAR VOLUME 95 fL (79-100); MONO # 1.6 x10^3/uL (0.0-1.1); MONO % 17 % (0-9); NEUT # 4.7 x10^3/uL (1.8-7.7); NEUT % 50 % (31-73); PLATELET COUNT 154 x10^3/uL (140-400); RED BLOOD COUNT 5.27 x10^6/uL (4.30-5.70); WHITE BLOOD COUNT 9.4 x10^3/uL (4.0-11.0)
[2020-08-09 03:44] LABS: ALBUMIN 3.4 g/dL (3.4-5.0); ALBUMIN/GLOBULIN RATIO 1.1 (1.0-1.7); CALCIUM 8.3 mg/dL (8.5-10.1); CREATININE 1.3 mg/dL (0.7-1.3); GFR 57.3; POTASSIUM 4.2 mmol/L (3.5-5.1); TOTAL BILIRUBIN 0.2 mg/dL (0.2-1.0); TOTAL PROTEIN 6.6 g/dL (6.4-8.2)
[2020-08-09] MEDS ORDERED: ASPIRIN CHEWABLE 81 MG TABLET. PO ONE (03:45)
[2020-08-09] MEDS ORDERED: IOHEXOL 300 MG/ML 100ML VIAL. IV ONE (05:30)
[2020-08-09] MEDS ORDERED: CONTRAST GIVEN. MC PRN (05:30)
[2020-08-09 05:39] VITALS: BP 144/83
--- NOTE | 2020-08-09 05:56 | RAD ---
XR CHEST 2V INDICATION: chest pain, cough COMPARISON STUDY: 05/02/2016. FINDINGS: Lungs: Normal lung volume. No pulmonary mass or consolidation. The tracheobronchial tree and hilar st ructures are normal. Pleura: No pleural effusion or pneumothorax. Heart and Mediastinum: Normal cardiac size. Enlarged pulmonary arteries. IMPRESSION: 1. No focal airspace disease. 2. Enlarged pulmonary arteries, which can be seen with pulmonary hypertension. Electronically signed by: Morris Breen MD (08/09/2020 5:54 AM) [facility]
--- NOTE | 2020-08-09 06:00 | RAD ---
CT THORAX W INDICATION: right lung mass Comparison: Radiograph 08/01/2020. CT 05/02/2016. TECHNIQUE: Following the uneventful administration of intravenous contrast, 60 cc Omnipaque 300, axia l CT sections were obtained through the lungs and upper abdomen. Multiplanar reconstructions and MIP images were obtained. RS compliance statement: One or more of the following individualized dose reduction techniques were utilized for this examinat ion: 1. Automated exposure control 2. Adjustment of the mA and/or kV according to patient size 3. Use of iterative reconstruction technique FINDINGS: Lungs and Airways: No pulmonary mass or consolidation. No abnormality of the central airways. Pleura: The pleural spaces are normal. Heart and Mediastinum: The visualized thyroid is normal in size and attenuation. No axillary or supra clavicular lymphadenopathy. No mediastinal, hilar or retrocrural lymphadenopathy. The heart and peric ardium are within normal limits. Normal caliber thoracic aorta. Dilated pulmonary trunk measures 4.5 cm. Abdomen: Cholelithiasis. Bones and Soft Tissues: Degenerative changes of the spine. IMPRESSION: 1. No pulmonary mass or consolidation. No thoracic lymphadenopathy. 2. Dilated pulmonary vasculature, which can be seen with pulmonary hypertension. Electronically signed by: Morris Breen MD (08/09/2020 5:57 AM) [facility]
[2020-08-09] MEDS ORDERED: PRED50TA PO (06:10)
[2020-08-09] MEDS ORDERED: AMOX1TAB61 PO (06:10)
--- NOTE | 2020-08-09 06:18 | EKG ---
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
== END 2020-08-09 06:28 | disposition home or self-care (01) ==
LOC: ER 02:32
DX: J18.9 Pneumonia, unspecified organism (principal); I10 Essential (primary) hypertension; F17.200 Nicotine dependence, unspecified, uncomplicated
CPT/HCPCS: 36415; 71046; 71260; 80053; 83880; 84484; 85025; 93005; 99285-25